=== PATIENT | male | born 1990 | race Caucasian/White ===

== ENCOUNTER 2017-08-20 09:52 | Emergency (ER) | payer OTHER ==
[2017-08-20 10:08] VITALS: RESP 16
--- NOTE | 2017-08-20 10:46 | EDPHY ---
H & P Stated Complaint: syncope, confusion Time Seen by Provider: 08/20/17 10:21 HPI/ROS: CHIEF COMPLAINT: Head injury, syncope versus seizure HISTORY OF PRESENT ILLNESS: 27-year-old male generally healthy arrives via private vehicle stating that while making dinner last night he remembers making dinner and then remembers waking up on the floor with blood in his mouth. He does not remember what happened. No history of similar. This was unwitnessed. He was unconscious for approximately 5 min as he remembers looking at the clock before and after he regained consciousness. No antecedent drug or alcohol use.Denies recent illness. He is currently complaining of bridge of nose pain, headache, neck pain, laceration to the tip of tongue. No dental trauma.. Denies: Peripheral paresthesia, weakness, numbness, chest pain, back pain, abdominal pain, incontinence. REVIEW OF SYSTEMS: A ten point review of systems was performed and is negative with the exception of the items mentioned in the HPI PAST MEDICAL/SURGICAL HISTORY: no anticoagulant use, pilonidal cyst. SOCIAL HISTORY: denies alcohol use at time of incident PHYSICAL EXAM 1) GENERAL: Well-developed, well-nourished, alert and oriented. Appears to be in no acute distress. Answering questions appropriately. 2) HEAD: Normocephalic, atraumatic 3) HEENT: Pupils equal, round, reactive to light bilaterally. Negative Horners. Nasopharynx, oropharynx, clear. No deformity or angulation of nose. Tender to bridge of nose. No septal hematoma. No rhinorrhea. No oral trauma. Ears bilaterally with normal tympanic membranes. No hemotympanum. No fluid or blood in the external auditory canal. Right infraorbital ecchymosis noted. No Mack sign. Teeth are normally aligned with no gross malocclusion, TMJ bilaterally nontender, facial bones nontender including the zygomatic arch, maxilla mandible. 4) NECK: Patient is unable to completely differentiate between true midline pain versus just lateral of midline lower cervical spine pain.C 5) LUNGS: Clear to auscultation bilaterally, no wheezes, no rhonchi, no retractions. No obvious signs of trauma. No chest wall pain. No flaring, no grunting. Moving symmetrically. No crepitus. 6) HEART: [Regular rate and rhythm, 7) ABDOMEN: No guarding, no rebound, no focal tenderness, no peritoneal signs, no signs of trauma, no ecchymosis 8) MUSCULOSKELETAL: Moving all extremities, no focal areas of tenderness, no obvious trauma. 9) BACK: No midline vertebral tenderness, no fluctuance, no step-off, no obvious trauma, no visual or palpable abnormality. 10) SKIN: No laceration. No abrasion 11) NEURO: Awake, alert, and oriented to person, place and time. Answers questions appropriately. There were no obvious focal neurologic abnormalities. No cerebellar dysfunction. Cranial nerves 2 through to 12 intact. Normal steady gait. Upper and lower extremities bilaterally with strength 5 / 5, reflexes 2+. DIFFERENTIAL DIAGNOSIS: In no particular order including but not limited to seizure, syncope, cardiac dysrhythmia, orthostatic hypotension, vasovagal syncope - Personal History Current Tetanus/Diphtheria Vaccine: Yes Current Tetanus Diphtheria and Acellular Pertussis (TDAP): Yes - Medical/Surgical History Hx Asthma: No Hx Chronic Respiratory Disease: No Hx Diabetes: No Hx Cardiac Disease: No Hx Renal Disease: No Hx Cirrhosis: No Hx Alcoholism: No Hx HIV/AIDS: No Hx Splenectomy or Spleen Trauma: No Other PMH: LATA eye surgery, pylonidol cyst, migraines - Social History Smoking Status: Never smoked Constitutional: Initial Vital Signs Temperature (C) 36.8 C 08/20/17 10:05 Heart Rate 65 08/20/17 10:05 Respiratory Rate 16 08/20/17 10:05 Blood Pressure 129/87 H 08/20/17 10:05 O2 Sat (%) 97 08/20/17 10:05 O2 Delivery Mode Room Air Allergies/Adverse Reactions: No Known Allergies Allergy (Unverified 08/20/17 10:04) Home Medications: Medication Instructions Recorded Mucinex 08/20/17 Sudafed 12-Hour 08/20/17 Medical Decision Making - Diagnostics Imaging Results: Imaging Impressions Cervical Spine CT 08/20/17 10:41 Impression: 1. No acute fracture or soft tissue swelling. 2. If the patient has persistent pain or neurologic deficits, consider cervical spine MRI. Findings discussed with Emergency Department physicianRodolfo PA-C on , 11:57. Head CT 08/20/17 10:41 Impression: Negative. No acute intracranial hemorrhage or skull fracture. Findings discussed with Emergency Department physician, Rodolfo Barker on , 11:57. ED Course/Re-evaluation: 10:45 a.m.: Patient is nonfocal exam. Plan will be diagnostic studies including EKG, CT the head and C-spine as he is unable differentiate true midline versus just lateral midline pain, head CT ordered in this patient for trauma for the following indication:, loss of consciousness and headache, seizure. Care of patient under supervision of secondary supervising physician Dr March . 12:54 p.m.: Patient was re-evaluated with serial exams. Discussed his diagnostic results. Answering questions appropriately. I discussed the case with secondary supervising physician Dr. Flor March in the ER. He remains with a nonfocal exam. He has been informed that seizure is not ruled out. His episode may have been secondary to vasovagal syncope and symptoms may be currently secondary to post concussive syndrome. I have recommend follow up with neurology and with Dr. Velia Sanabria. At this time I do not think that hospital admission or emergent neurology consultation is indicated however I recommend this on outpatient basis. He has been given usual and customary seizure precautions and instructions. - Data Points Laboratory Results: Laboratory Results 08/20/17 10:50 08/20/17 10:50 08/20/17 08/20/17 10:50 10:50 WBC 6.15 10^3/uL 10^3/uL (3.80-9.50) RBC 5.43 10^6/uL 10^6/uL (4.40-6.38) Hgb 16.5 g/dL g/dL (13.7-17.5) Hct 47.5 % % (40.0-51.0) MCV 87.5 fL fL (81.5-99.8) MCH 30.4 pg pg (27.9-34.1) MCHC 34.7 g/dL g/dL (32.4-36.7) RDW 11.9 % % (11.5-15.2) Plt Count 187 10^3/uL 10^3/uL (150-400) MPV 11.2 fL fL (8.7-11.7) Neut % (Auto) 76.1 % H % (39.3-74.2) Lymph % (Auto) 15.9 % % (15.0-45.0) Towns % (Auto) 7.2 % % (4.5-13.0) Eos % (Auto) 0.2 % L % (0.6-7.6) Baso % (Auto) 0.3 % % (0.3-1.7) Nucleat RBC Rel Count 0.0 % % (0.0-0.2) Absolute Neuts (auto) 4.68 10^3/uL 10^3/uL (1.70-6.50) Absolute Lymphs (auto) 0.98 10^3/uL L 10^3/uL (1.00-3.00) Absolute Monos (auto) 0.44 10^3/uL 10^3/uL (0.30-0.80) Absolute Eos (auto) 0.01 10^3/uL L 10^3/uL (0.03-0.40) Absolute Basos (auto) 0.02 10^3/uL 10^3/uL (0.02-0.10) Absolute Nucleated RBC 0.00 10^3/uL 10^3/uL (0-0.01) Immature Gran % 0.3 % % (0.0-1.1) Immature Gran # 0.02 10^3/uL 10^3/uL (0.00-0.10) Sodium 143 mEq/L mEq/L (135-145) Potassium 3.9 mEq/L mEq/L (3.5-5.2) Chloride 104 mEq/L mEq/L (97-110) Carbon Dioxide 22 mEq/l mEq/l (22-31) Anion Gap 17 mEq/L H mEq/L (8-16) BUN 17 mg/dL mg/dL (7-23) Creatinine 1.1 mg/dL mg/dL (0.7-1.3) Estimated GFR > 60 Glucose 92 mg/dL mg/dL (70-100) Calcium 10.6 mg/dL H mg/dL (8.5-10.4) Departure - Departure Disposition: Home, Routine, Self-Care Clinical Impression: Head injury Qualifiers: Encounter type: initial encounter Qualified Code(s): S09.90XA - Unspecified injury of head, initial encounter Condition: Good Instructions: Head Injury (ED), Concussion (ED) Additional Instructions: You may have had a seizure. Until your cleared by the your neurologist do not: Drive, swim alone, climb to heights, operate machinery ALTHOUGH THERE IS NO EVIDENCE OF SERIOUS HEAD INJURY AT THIS TIME, DELAYED SIGNS CAN APPEAR 24 TO 48 HOURS AFTER INJURY. PLEASE RETURN TO THE EMERGENCY DEPARTMENT (ED) IMMEDIATELY IF YOU HAVE INCREASED HEADACHE, PERSISTENT HEADACHE , VOMITING, WEAKNESS, CONFUSION OR VISUAL PROBLEMS. WE RECOMMEND THAT YOU DO NOT RESUME CONTACT SPORTS OR ACTIVITIES THAT TAKE COORDINATION OR BALANCE SUCH SKIING OR RIDING A BICYCLE UNTIL CLEARED TO DO SO BY YOUR DOCTOR OR BY A NEUROLOGIST. Referrals: Philip Szymanski DO [Doctor of Osteopathy] - As per Instructions Velia Sanabria MD [Medical Doctor] - As per Instructions
--- NOTE | 2017-08-20 10:57 | CPEKG ---
Heart Rate: 76 RR Interval: 789 P-R Interval: 164 QRSD Interval: 86 QT Interval: 360 QTC Interval: 405 P Boykins: 8 QRS Boykins: 77 T Wave Boykins: 54 EKG Severity - OTHERWISE NORMAL ECG - EKG Impression: SINUS ARRHYTHMIA, RATE 59-91 Electronically Signed By: Flor March 20-Aug-2017 14:57:13
[2017-08-20 11:09] LABS: PLATELET COUNT 187 10^3/uL (150-400)
[2017-08-20 13:29] VITALS: BP 132/84; PULSE 80; TEMP 96.8; O2SAT 97
== END 2017-08-20 13:27 | disposition home or self-care (01) ==
DX: S09.90XA Unspecified injury of head, initial encounter (principal); X58.XXXA Exposure to other specified factors, initial encounter; Y93.89 Activity, other specified

== ENCOUNTER → 2018-09-16 | Outpatient (CLI) | payer OTHER | LOC: CIMAGING 08:50 | PROVIDERS: ATTEND Family Medicine | DX: R10.11 Right upper quadrant pain (principal); F32.9 Major depressive disorder, single episode, unspecified; F41.9 Anxiety disorder, unspecified; G47.00 Insomnia, unspecified | CPT/HCPCS: 76700-PO ==

== ENCOUNTER → 2018-09-24 | Outpatient (CLI) | payer OTHER | LOC: FIMAGING 09:06 | PROVIDERS: ATTEND Family Medicine | DX: R10.11 Right upper quadrant pain (principal); K82.8 Other specified diseases of gallbladder | CPT/HCPCS: 78227; A9537 ==